=== PATIENT | female | born 1985 | race Caucasian/White ===

== ENCOUNTER 2016-05-16 14:13 | Emergency (ER) | payer SELFPAY ==
--- NOTE | 2016-05-16 14:54 | RAD ---
RIGHT ANKLE 3 VIEWS: Date: 05/16/16 PROVIDED CLINICAL HISTORY: Right ankle pain status post injury. FINDINGS: Lateral malleolar soft tissue swelling is seen. No evidence for fracture or other acute osseous abno rmality. If there is persistent clinical concern, conservative management and follow-up imaging advi sed. IMPRESSION: As above. POS: [facility]
[2016-05-16] MEDS ORDERED: Naproxen 500 MG TAB ONE (15:11)
== END 2016-05-16 15:20 | disposition home or self-care (01) ==
LOC: MADERS 14:13
DX: S93.401A Sprain of unspecified ligament of right ankle, initial encounter (principal); F41.9 Anxiety disorder, unspecified; F17.210 Nicotine dependence, cigarettes, uncomplicated; X50.1XXA Overexertion from prolonged static or awkward postures, initial encounter

== ENCOUNTER 2018-02-11 21:49 | Emergency (ER) | payer SELFPAY | END 2018-02-11 22:20 | disposition home or self-care (01) | LOC: MADERS 21:49 | DX: R09.81 Nasal congestion (principal); F17.210 Nicotine dependence, cigarettes, uncomplicated | CPT/HCPCS: 99281 ==

== ENCOUNTER 2018-09-09 08:32 | Emergency (ER) | payer SELFPAY | END 2018-09-09 09:20 | disposition home or self-care (01) | LOC: MADERS 08:32 | DX: J18.9 Pneumonia, unspecified organism (principal); F41.9 Anxiety disorder, unspecified; F17.210 Nicotine dependence, cigarettes, uncomplicated; Z79.899 Other long term (current) drug therapy | CPT/HCPCS: 99283 ==

== ENCOUNTER 2022-03-23 14:17 | Emergency (ER) | payer SELFPAY ==
[2022-03-23] MEDS ORDERED: Dexamethasone 10 MG/ML VIAL ONE (14:47)
== END 2022-03-23 15:20 | disposition home or self-care (01) ==
LOC: MADERS 14:17
DX: U07.1 COVID-19 (principal); J02.9 Acute pharyngitis, unspecified; F17.290 Nicotine dependence, other tobacco product, uncomplicated; I10 Essential (primary) hypertension; K21.9 Gastro-esophageal reflux disease without esophagitis
CPT/HCPCS: 87081; 87430; 99283; J1100

== ENCOUNTER 2022-06-19 13:27 | Emergency (ER) | payer SELFPAY | END 2022-06-19 14:34 | disposition home or self-care (01) | LOC: MADERS 13:27 | DX: S72.04 Fracture of base of neck of femur (principal); T78.40XA Allergy, unspecified, initial encounter; I10 Essential (primary) hypertension; K21.9 Gastro-esophageal reflux disease without esophagitis; E66.9 Obesity, unspecified; F17.290 Nicotine dependence, other tobacco product, uncomplicated; X58.XXXA Exposure to other specified factors, initial encounter; Z79.899 Other long term (current) drug therapy | CPT/HCPCS: 99283 ==

== ENCOUNTER 2022-06-20 19:07 | Emergency (ER) | payer SELFPAY ==
[2022-06-20] MEDS ORDERED: predniSONE 20 MG TAB ONE (19:44)
== END 2022-06-20 19:49 | disposition home or self-care (01) ==
LOC: MADERS 19:07
DX: T78.40XA Allergy, unspecified, initial encounter (principal); K21.9 Gastro-esophageal reflux disease without esophagitis; I10 Essential (primary) hypertension; E66.9 Obesity, unspecified; Z79.899 Other long term (current) drug therapy; Z79.84 Long term (current) use of oral hypoglycemic drugs
CPT/HCPCS: 99283; J7512

== ENCOUNTER 2022-10-23 00:22 | Emergency (ER) | payer MEDICAID, SELFPAY ==
[2022-10-23 00:58] LABS: Bilirubin Negative (Negative); Blood, Urine Moderate (Negative); Glucose, Urine (Dipstick) Negative (Negative); Ketone, Urine Negative (Negative); Leukocyte Large (Negative); Nitrite Positive (Negative); Protein, Urine (Dipstick) 100 mg/dL (Neg-Trace); Specific Gravity, Urine 1.015 (1.005-1.030)
[2022-10-23 01:09] LABS: Bacteria/HPF 2+ HPF (None Seen); CAUTI Indications for Culture Dysuria,urgency,freq; Clarity Turbid (Clear); RBC/HPF 0-3 HPF (0-3); WBC/HPF Greater than 50 HPF (0-3)
[2022-10-23 01:10] LABS: Urine Culture Reflex Yes Yes
[2022-10-23] MEDS ORDERED: Phenazopyridine HCl 95 MG TAB ONE ×2 (01:25→01:27)
[2022-10-23] MEDS ORDERED: Nitrofurantoin Monohyd/M-Cryst 100 MG CAP ONE (01:25)
== END 2022-10-23 01:35 | disposition home or self-care (01) ==
LOC: MADERS 00:22
DX: N39.0 Urinary tract infection, site not specified (principal); K21.9 Gastro-esophageal reflux disease without esophagitis; I10 Essential (primary) hypertension; E66.9 Obesity, unspecified; F17.290 Nicotine dependence, other tobacco product, uncomplicated; Z79.899 Other long term (current) drug therapy; Z79.84 Long term (current) use of oral hypoglycemic drugs
CPT/HCPCS: 81001; 87077; 87086; 87186; 99283

== ENCOUNTER 2023-10-22 08:01 | Emergency (ER) | payer MEDICAID, OTHER ==
[2023-10-22 09:15] LABS: SARS-CoV-2 E Target Positive; SARS-CoV-2 N2 Target Positive; SARS-CoV-2 NAA Rapid Test DETECTED (NotDetected); SARS-CoV-2 RdRP gene Positive
== END 2023-10-22 09:31 | disposition home or self-care (01) ==
LOC: MADERS 08:01
DX: U07.1 COVID-19 (principal); I10 Essential (primary) hypertension; F17.290 Nicotine dependence, other tobacco product, uncomplicated; Z79.899 Other long term (current) drug therapy
CPT/HCPCS: 87081; 87430; 87804; 99283; U0002